=== PATIENT | female | born 1975 | race Caucasian/White ===

== ENCOUNTER 2019-03-11 19:40 | Emergency (ER) | payer SELFPAY | END 2019-03-11 21:35 | disposition home or self-care (01) | LOC: FTE 19:40 | DX: S80.212A Abrasion, left knee, initial encounter (principal); S99.922A Unspecified injury of left foot, initial encounter; R03.0 Elevated blood-pressure reading, without diagnosis of hypertension; W01.0XXA Fall on same level from slipping, tripping and stumbling without subsequent striking against object, initial encounter; Y92.89 Other specified places as the place of occurrence of the external cause | CPT/HCPCS: 73562; 73630-LT; 99283-25 ==